=== PATIENT | female | born 1995 | race Caucasian/White ===

== ENCOUNTER 2016-12-27 17:01 | Emergency (ER) | payer OTHER ==
[~2016-12-27] VITALS: Ht 165.1 cm; Wt 95.2 kg
--- NOTE | ~2016-12-27 | CR282 ---
[facility] A Service of [facility] & [facility] RADIOLOGY TEXT RESULTS PATIENT: KEILA AG LOCATION: CFTX : [birth year] UNIT #: [id number] AGE: [address]: Zoey Cantu APRN SEX: F ORDER DR: [id number] [facility] [address] [place], [place] [address] [id number] E MR#: [id number] Acc #: [id number] NAME: KEILA AG. : 1995 SEX: F STUDY DATE/TIME: 12/27/2016 18:31 UNIT: [facility] ROOM: STUDY DESCRIPTION: CR Wrist Min 3 View Rt Attending Physician: Zoey Cantu A.P.R.N. Ordering Physician: [facility] Primary Care Physician: Primary Care Physician No MEDICAL IMAGING REPORT This report is preliminary unless electronic signature is present EXAM Right wrist INDICATIONS Right wrist pain status post fall. FINDINGS Three views of the right wrist without comparison. There is no acute fracture or dislocation. Alignment is anatomic. IMPRESSION Negative right wrist Dictated by... Randolph Garcia M.D. THIS IS AN ELECTRONICALLY VERIFIED REPORT Randolph Garcia M.D. at 12/28/2016 8:13 AM KAYY/kathy TD: 12/28/2016 07:19 JOB #: [id number] MEDICAL IMAGING REPORT Page 1 of 1 COPY
--- NOTE | ~2016-12-27 | CR157 ---
[facility] A Service of [facility] & [facility] RADIOLOGY TEXT RESULTS PATIENT: KEILA AG LOCATION: CFTX : [birth year] UNIT #: [id number] AGE: [address]: Zoey Cantu APRN SEX: F ORDER DR: [id number] [facility] [address] [place], [place] [address] [id number] E MR#: [id number] Acc #: [id number] NAME: KEILA AG. : 1995 SEX: F STUDY DATE/TIME: 12/27/2016 18:24 UNIT: [facility] ROOM: STUDY DESCRIPTION: CR Humerus Min 2 View Rt Attending Physician: Zoey Cantu A.P.R.N. Ordering Physician: Raphael Redman M.D. Primary Care Physician: Primary Care Physician No MEDICAL IMAGING REPORT This report is preliminary unless electronic signature is present EXAM Right humerus INDICATION Right arm pain status post fall. FINDINGS Two views of the right humerus without comparison. There is no fracture or dislocation. Articulation at the shoulder and elbow is anatomic. IMPRESSION Negative right humerus. Dictated by... Randolph Garcia M.D. THIS IS AN ELECTRONICALLY VERIFIED REPORT Randolph Garcia M.D. at 12/28/2016 8:13 AM KAYY/miranda TD: 12/28/2016 07:28 JOB #: [id number] MEDICAL IMAGING REPORT Page 1 of 1 COPY
--- NOTE | ~2016-12-27 | CR133 ---
[facility] A Service of [facility] & [facility] RADIOLOGY TEXT RESULTS PATIENT: KEILA AG LOCATION: CFTX : [birth year] UNIT #: [id number] AGE: [address]: Zoey Cantu APRN SEX: F ORDER DR: [id number] [facility] [address] [place], [place] [address] [id number] E MR#: [id number] Acc #: [id number] NAME: KEILA AG. : 1995 SEX: F STUDY DATE/TIME: 12/27/2016 18:27 UNIT: [facility] ROOM: STUDY DESCRIPTION: CR Forearm 2 View Rt Attending Physician: Zoey Cantu A.P.R.N. Ordering Physician: Raphael Redman M.D. Primary Care Physician: Primary Care Physician No MEDICAL IMAGING REPORT This report is preliminary unless electronic signature is present EXAM Right forearm INDICATION Right forearm pain status post trauma. FINDINGS Two views of the right forearm without comparison. There is no acute fracture or dislocation. Alignment at the elbow and wrist is anatomic. IMPRESSION Negative right forearm. Dictated by... Randolph Garcia M.D. THIS IS AN ELECTRONICALLY VERIFIED REPORT Randolph Garcia M.D. at 12/28/2016 8:13 AM KAYY/miranda TD: 12/28/2016 07:24 JOB #: [id number] MEDICAL IMAGING REPORT Page 1 of 1 COPY
--- NOTE | ~2016-12-27 | CR94 ---
[facility] A Service of [facility] & [facility] RADIOLOGY TEXT RESULTS PATIENT: KEILA AG LOCATION: [facility] : [birth year] UNIT #: [id number] AGE: [address]: Zoey Cantu APRN SEX: F ORDER DR: [id number] [facility] [address] [place], [place] [address] [id number] E MR#: [id number] Acc #: [id number] NAME: KEILA AG. : 1995 SEX: F STUDY DATE/TIME: 12/27/2016 18:26 UNIT: [facility] ROOM: STUDY DESCRIPTION: CR Elbow Min 3 Views Rt Attending Physician: Zoey Cantu A.P.R.N. Ordering Physician: [facility] Primary Care Physician: Primary Care Physician No MEDICAL IMAGING REPORT This report is preliminary unless electronic signature is present EXAM Right elbow INDICATIONS Fall. Trauma. Right elbow pain. FINDINGS Three views of the right elbow without comparison. The orientation of the radiographs are off axis. There is no fracture or dislocation. No elbow effusion. IMPRESSION Rotated elbow radiographs, however there are no acute findings identified. Dictated by... Randolph Garcia M.D. THIS IS AN ELECTRONICALLY VERIFIED REPORT Randolph Garcia M.D. at 12/28/2016 8:13 AM KAYY/kathy TD: 12/28/2016 07:27 JOB #: [id number] MEDICAL IMAGING REPORT Page 1 of 1 COPY
[~2016-12-27 17:01] MED LIST: FLEXERIL PO; MAGIC MOUTH WASH; NO MEDICATIONS
== END 2016-12-27 19:40 | disposition home or self-care (01) ==
LOC: CED 17:01 → CFTX 17:01
DX: O9A.212 Injury, poisoning and certain other consequences of external causes complicating pregnancy, second trimester (principal); S50.11XA Contusion of right forearm, initial encounter; S60.211A Contusion of right wrist, initial encounter; S40.021A Contusion of right upper arm, initial encounter; O99.332 Smoking (tobacco) complicating pregnancy, second trimester; F17.210 Nicotine dependence, cigarettes, uncomplicated; W01.0XXA Fall on same level from slipping, tripping and stumbling without subsequent striking against object, initial encounter; Y92.009 Unspecified place in unspecified non-institutional (private) residence as the place of occurrence of the external cause
CPT/HCPCS: 73060; 73080; 73090; 73110; 99283